=== PATIENT | female | born 1950 | race Caucasian/White ===

== ENCOUNTER 2021-06-13 13:50 | Emergency (ER) | payer MEDICARE ==
[~2021-06-13] VITALS: Ht 170.2 cm; Wt 70.3 kg
[2021-06-13 14:38] LABS: HEMOGLOBIN 15.6 gm/dl (12.3-15.3); RED BLOOD COUNT 4.9 M/UL (4.00-5.10); WHITE BLOOD COUNT 9.2 K/UL (4.5-11.0)
[2021-06-13 14:57] LABS: BUN/CREATININE RATIO 17 (0-10)
== END 2021-06-13 18:30 | disposition home or self-care (01) ==
LOC: ER1 13:50
PROVIDERS: Physician Assistant
DX: U07.1 COVID-19 (principal); Z23 Encounter for immunization; I10 Essential (primary) hypertension
CPT/HCPCS: 71045; 80053; 85025; 99283; M0243